=== PATIENT | female | born 1975 | race Caucasian/White ===

== ENCOUNTER → 2019-01-18 | Outpatient (CLI) | payer BC ==
--- NOTE | 2019-01-18 11:46 | US ---
EXAMINATION TYPE: US abdomen complete DATE OF EXAM: 01/18/2019 COMPARISON: CT from 2015 CLINICAL HISTORY: N92.6 Irregular bleeding,N92.1 Metromenorrhagia. heavy cycles for 3 months, pelvic pain, abdominal pain, cholecystectomy, large body habitus EXAM MEASUREMENTS: Liver Length: 16.3 cm Gallbladder Wall: Surgically absent CBD: not seen Spleen: 12.0 cm Right Kidney: 10.6 x 3.9 x 5.3 cm Left Kidney: 10.2 x 4.5 x 5.2 cm Pancreas: not seen, bowel gas Liver: intercostal imaging of heterogeneous liver, due to bowel gas Gallbladder: Surgically absent Evidence for sonographic Mccabe's sign: no CBD: not seen due to reasons stated above Spleen: wnl Right Kidney: wnl Left Kidney: wnl Upper IVC: wnl Abd Aorta: limited views due to bowel gas The visualized liver is heterogeneous. The intrahepatic portion of the IVC and visualized abdominal aorta are within normal limits. Gallbladder is now surgically absent. Common bile duct is unremarkab le. Suboptimal evaluation of pancreas on images saved secondary to overlying bowel gas. The spleen i s unremarkable. Kidneys are symmetric and free of hydronephrosis. No renal lesions are seen on imag es saved. IMPRESSION: No acute finding. No abdominal ascites. Probable mild diffuse fatty infiltration of liver .
--- NOTE | 2019-01-18 11:47 | US ---
EXAMINATION TYPE: US pelvic complete DATE OF EXAM: 01/18/2019 COMPARISON: Prior ultrasound April 29, 2014 CLINICAL HISTORY: pain. pelvic pain along with irregular cycles for 3 months TECHNIQUE: TA. Transabdominal sonographic images of the pelvis were acquired. Date of LMP: 12/05/2018 EXAM MEASUREMENTS: Uterus: 9.7 x 7.3 x 5.2 cm Endometrial Stripe: 1.4 cm Right Ovary: 1.8 x 1.8 x 2.0 cm Left Ovary: 3.1 x 4.2 x 2.3 cm patient cannot fill bladder and refused TV due to pain 1. Uterus: Anteverted wnl 2. Endometrium: borderline thickened 3. Right Ovary: 2.0cm simple appearing cyst 4. Left Ovary: 3.1cm simple appearing cyst 5. Bilateral Adnexa: wnl 6. Posterior cul-de-sac: wnl Heterogeneous anteverted uterus with endometrial stripe up to 14 mm which is within normal limits for late secretory phase of menstrual cycle. No free fluid in pelvic cul-de-sac. Both ovaries are identi fied with simple appearing cysts present bilaterally up to 3.0 cm. IMPRESSION: Transabdominal pelvic ultrasound shows an endometrial stripe upper limits of normal. No d efinitive focal fibroids.
== END | disposition home or self-care (01) ==
LOC: RADUSWWP 09:17
PROVIDERS: ATTEND Family Medicine
DX: N92.6 Irregular menstruation, unspecified (principal); N92.1 Excessive and frequent menstruation with irregular cycle
CPT/HCPCS: 76700; 76856

== ENCOUNTER → 2019-04-10 | Outpatient (CLI) | payer BC ==
[2019-04-10 17:34] LABS: Basophils # (A) 0.1 k/uL (0-0.2); Basophils % (A) 1 %; Eosinophils # (A) 0.3 k/uL (0-0.7); Eosinophils % (A) 3 %; HCT 38.4 % (34.0-46.0); HGB 13.2 gm/dL (11.4-16.0); Lymphocytes # (A) 2.6 k/uL (1.0-4.8); Lymphocytes % (A) 24 %; MCH 31.6 pg (25.0-35.0); MCHC 34.4 g/dL (31.0-37.0); MCV 91.9 fL (80.0-100.0); Monocytes # (A) 0.5 k/uL (0-1.0); Monocytes % (A) 5 %; Neutrophils # (A) 7.1 k/uL (1.3-7.7); Neutrophils % (A) 66 %; Platelet Count 354 k/uL (150-450); RBC 4.18 m/uL (3.80-5.40); RDW 12.7 % (11.5-15.5); WBC 10.9 k/uL (3.8-10.6)
== END ==
LOC: LABPAT 17:02
PROVIDERS: ATTEND Obstetrics & Gynecology
DX: Z01.812 Encounter for preprocedural laboratory examination (principal); N93.8 Other specified abnormal uterine and vaginal bleeding; N92.1 Excessive and frequent menstruation with irregular cycle
CPT/HCPCS: 85025

== ENCOUNTER 2019-04-16 07:25 | Day surgery (SDC) | payer BC ==
[2019-04-15 08:26] VITALS: BMI 41.5
[~2019-04-16 07:25] MED LIST: DEXAMETHASONE SOD PHOSPHATE 10 MG/ML 1 ML VIAL IV ONE; HYDROmorphone 0.5 MG/0.5 ML SYRINGE IVP PRN; LACTATED RINGERS 1,000 ML IV SCH; LIDOCAINE 1% 20 ML VIAL (10MG/ML) FOR IV START INTRADERMA PRN; MIDAZOLAM 2 MG/2 ML VIAL IV PRN; ONDANSETRON 4 MG/2 ML VIAL IVP ONE; SCOPOLAMINE 1.5MG/72HR PATCH TRANSDERM ONE; ceFAZolin 3 GM in SODIUM CHLORIDE 0.9% 100 ML IVPB ONE
[2019-04-16 07:48] VITALS: RESP 16
[2019-04-16] MEDS ORDERED: KETOROLAC 30 MG/ML 1 ML VIAL ONE (08:38)
[2019-04-16] MEDS ORDERED: SUCCINYLCHOLINE CHLORIDE 100 MG/5 ML SYR IV ONE (08:38)
[2019-04-16] MEDS ORDERED: fentaNYL (PF) 50 MCG/ML 2 ML AMP ONE (08:38)
[2019-04-16] MEDS ORDERED: LIDOCAINE 1% INJ 10MG/ML (20 ML MDV) ONE (08:38)
[2019-04-16] MEDS ORDERED: PROPOFOL 10 MG/ML 20 ML VIAL IV ONE (08:38)
[2019-04-16] MEDS ORDERED: MIDAZOLAM 2 MG/2 ML VIAL ONE (08:38)
[2019-04-16] MEDS ORDERED: Acetaminophen-Codeine 300-30mg TAB PO PRN ×2 (08:42)
[2019-04-16] MEDS ORDERED: METOCLOPRAMIDE 5 MG/ML 2 ML VIAL IVP PRN (08:42)
[2019-04-16] MEDS ORDERED: IBUPROFEN 600 MG TAB PO PRN (08:42)
[2019-04-16] MEDS ORDERED: diphenhydrAMINE 50 MG/ML 1 ML VIAL IVP PRN (08:42)
[2019-04-16] MEDS ORDERED: SIMETHICONE 80 MG CHEWABLE PO PRN (08:42)
[2019-04-16] MEDS ORDERED: KETOROLAC 30 MG/ML 1 ML VIAL IVP PRN (08:42)
[2019-04-16] MEDS ORDERED: ONDANSETRON 4 MG/2 ML VIAL IVP PRN (08:42)
--- NOTE | 2019-04-16 09:18 | P.OP ---
Date of Procedure: 04/16/19 Preoperative Diagnosis: #1. Dysfunctional uterine bleeding #2. Menometrorrhagia Postoperative Diagnosis: Same Procedure(s) Performed: #1. Diagnostic hysteroscopy #2. Endometrial curettage #3. NovaSure endometrial ablation Anesthesia: DYLAN Surgeon: Keaton Love Estimated Blood Loss (ml): 5 IV fluids (ml): 500 Urine output (ml): 10 Pathology: other (Endometrial curettings) Condition: stable Disposition: PACU Operative Findings: Preoperative pelvic examination demonstrated a roughly 5 week anteverted mobile normal shaped uterus with normal adnexa bilaterally. Intraoperatively, the uterus sounded to approximately 8.5 cm with a cervical length of 3 cm. Using the hysteroscope, there was a moderate amount of shaggy tissue along the posterior fundal portion of the uterus with one area in the left cornu which appeared to be somewhat polypoid in nature. The uterus also appeared to be slightly heart-shaped. As result of the shaggy tissue, curettage was performed with minimal tissue return onto a Telfa in the vagina. The settings for the NovaSure tool where a length of 5.5 cm, a width of 4.7 cm for a total power 142 W. After a run time of 55 seconds, the base unit read "procedure complete." The postprocedural result with the hysteroscope appeared to be excellent. The patient is a poor candidate for vaginal hysterectomy should it become necessary. Description of Procedure: The patient was prepped and draped in usual fashion after general endotracheal anesthesia was administered by the anesthesiologist. A weighted speculum was placed and the anterior lip of the cervix was grasped with a single-tooth tenaculum. The bladder was drained of approximately 10 mL of clear rebecca urine. The uterus was sounded to approximately 8.5 cm with a cervical length of approximately 3 cm. Serial dilation was carried out to admit the diagnostic hysteroscope which was placed and the in vitro cavity and distended with saline. The findings are as noted above with a moderate amount of shaggy tissue along the posterior wall of the fundus and what appeared to be a very small sessile polyp the left posterior cornual region. The bilateral cornu were seen. After adequate hysteroscopy was carried out, scope was set aside and the Telfa placed in the vagina. A small sharp curette was utilized to thoroughly and circumferentially curet the in vitro cavity with the tissue removed onto a Telfa placed in the vagina. The sharp curet was set aside and the NovaSure tool placed into the endometrial cavity, opened, and seated well. The settings were as noted above with a length of 5.5 cm, a width of 4.7 cm for a total power 140 W. The cavity check was attempted and passed without difficulty. The tool was enabled and the run was started. After total run time of 55 seconds, the base unit read "procedure complete." The tool was closed, removed, and discarded and the diagnostic scope placed with the findings noted to be excellent as noted above. All instrumentation was then removed. One of the tenaculum sites was noted to be bleeding and was made hemostatic with pressure. Estimated blood loss was less than 5 mL. There are no complications. All sponge, instrument, and needle counts were correct. The patient tolerated the procedure well and proceeded to the recovery room in stable condition. She is a poor candidate for vaginal hysterectomy as there is minimal descensus.
[2019-04-16 09:27] VITALS: TEMP 96.9
[2019-04-16] MEDS ORDERED: ONDANSETRON ODT 4 MG TAB PO ONE (09:32)
[2019-04-16] MEDS: LACTATED RINGERS 1,000 ML IV SCH ×2 (10:05→10:15)
[2019-04-16 11:22] VITALS: BP 116/81; PULSE 71
== END 2019-04-16 12:10 | disposition home or self-care (01) ==
LOC: OR 07:25
PROVIDERS: ATTEND Obstetrics & Gynecology
DX: N92.1 Excessive and frequent menstruation with irregular cycle (principal); N84.0 Polyp of corpus uteri; Z90.49 Acquired absence of other specified parts of digestive tract; Z98.51 Tubal ligation status; Z98.890 Other specified postprocedural states; E66.9 Obesity, unspecified; Z79.899 Other long term (current) drug therapy; Z68.41 Body mass index [BMI] 40.0-44.9, adult
CPT/HCPCS: 81025; 88305; 58563; J2250; J1100; J2405; J2001; J3010; J1885; J0330; J2704; J1170

== ENCOUNTER → 2020-08-05 | Outpatient (CLI) | payer BC ==
--- NOTE | 2020-08-05 09:26 | US ---
EXAMINATION TYPE: US abdomen limited DATE OF EXAM: 08/05/2020 COMPARISON: NONE CLINICAL HISTORY: R74.8 Abnormal levels Alk Phosphatase, R94.5 Abnormal LFT. patient was taking 8 Monika ve a day for rotator tear pain, no symptoms within abd EXAM MEASUREMENTS: Liver Length: 14.9 cm Gallbladder Wall: Surgically absent CBD: 0.4 cm Right Kidney: 10.6 x 4.8 x 5.3 cm large habitus and overlying bowel gas limits exam Pancreas: not seen Liver: intercostal imaging due to gas, difficult to penetrate with no focal abnormality noted Gallbladder: Surgically absent Evidence for sonographic Mccabe's sign: no CBD: wnl Right Kidney: wnl IMPRESSION: 1. Suspect hepatic steatosis. . The bowel.
== END | disposition home or self-care (01) ==
LOC: RADUSWWP 08:53
PROVIDERS: ATTEND Family Medicine
DX: R74.8 Abnormal levels of other serum enzymes (principal); R94.5 Abnormal results of liver function studies
CPT/HCPCS: 76705

== ENCOUNTER → 2020-08-13 | Outpatient (CLI) | payer BC ==
--- NOTE | 2020-08-13 15:46 | MR ---
EXAMINATION TYPE: MR shoulder LT wo con DATE OF EXAM: 08/13/2020 COMPARISON: X-ray film 07/21/2020 HISTORY: Left shoulder pain for 7 months TECHNIQUE: Multiplanar, multisequence imaging of the left shoulder is performed without contrast. FINDINGS: Rotator Cuff: Intact, no vera rotator cuff tear, there is some increased intrinsic signal within the rotator cuff, some local fluid signal is present. Minimal irregularity inferior aspect of the acromi on is noted consistent with spur Acromioclavicular Joint: There is arthropathy change present, some mass effect is present on the musc ulotendinous junction of supraspinatus Glenohumeral Joint: Intact Labrum: Superior labrum shows some abnormal increased signal intrinsically, there is a somewhat trunc ated appearance, coronal image #18 and 19 mother may be some generative fraying Biceps Tendon: The long head of biceps is in normal location within bicipital groove. Bone marrow signal: No focal abnormal marrow signal is appreciated. Other: No additional significant abnormality is appreciated. IMPRESSION: Findings suggest tendinosis of the rotator cuff, no vera rotator cuff tear, correlate for impingemen t. There may be some degenerative signal, fraying of the superior labrum
== END | disposition home or self-care (01) ==
LOC: RADMRIMAIN 11:02
PROVIDERS: ATTEND Orthopaedic Surgery
DX: M25.512 Pain in left shoulder (principal)

== ENCOUNTER → 2020-09-09 | Outpatient (CLI) | payer BC ==
[2020-09-09 11:41] LABS: Basophils # (A) 0.1 k/uL (0-0.2); Basophils % (A) 1 %; Eosinophils # (A) 0.4 k/uL (0-0.7); Eosinophils % (A) 5 %; HCT 41.6 % (34.0-46.0); HGB 14.3 gm/dL (11.4-16.0); Lymphocytes # (A) 2.5 k/uL (1.0-4.8); Lymphocytes % (A) 27 %; MCHC 34.3 g/dL (31.0-37.0); MCV 93.4 fL (80.0-100.0); Mean Platelet Volume 10.4; Monocytes # (A) 0.4 k/uL (0-1.0); Monocytes % (A) 4 %; Neutrophils # (A) 5.6 k/uL (1.3-7.7); Neutrophils % (A) 61 %; Platelet Count 265 k/uL (150-450); RBC 4.46 m/uL (3.80-5.40); RDW 12.8 % (11.5-15.5); WBC 9.3 k/uL (3.8-10.6)
[2020-09-09 11:54] LABS: Potassium 4.4 mmol/L (3.5-5.1)
== END | disposition home or self-care (01) ==
LOC: LABWHC1 11:01
PROVIDERS: ATTEND Orthopaedic Surgery
DX: Z01.812 Encounter for preprocedural laboratory examination (principal); M75.42 Impingement syndrome of left shoulder
CPT/HCPCS: 36415; 80051; 85025

== ENCOUNTER → 2020-09-24 | Day surgery (SDC) | payer BC | END | disposition home or self-care (01) | CPT/HCPCS: 29826; 29827; 64415; 81025; 76942; C1713; J2250; J1100; J2765; J0690; J2405; J2001; J3010; J2795; J1885; J0330; J2704 ==

== ENCOUNTER 2021-01-11 11:17 | Day surgery (SDC) | payer BC ==
[2021-01-07 15:18] VITALS: BMI 38.3
--- NOTE | 2021-01-10 12:02 | HP ---
HISTORY AND PHYSICAL DATE OF SURGERY: 01/11/2021 Danyell Chahal is a 45-year-old patient seen with left shoulder adhesive capsulitis. We discussed options for treatment. She elected to proceed with manipulation under anesthesia of the left shoulder with steroid injection. Consent was obtained. PAST MEDICAL HISTORY: Noncontributory. PAST SURGICAL HISTORY: Left shoulder arthroscopy. DAILY MEDICATIONS: Ibuprofen. ALLERGIES: NONE. SOCIAL HISTORY: She denies tobacco use. PHYSICAL EVALUATION OF THE LEFT SHOULDER: She has well-healed arthroscopic portal sites. Flexion is 100, abduction is 90, external rotation is 45 with some weakness. Her distal neurovascular exam is intact. RADIOGRAPHS: Left shoulder radiographs revealed stable conversion to a flat anterior acromion. IMPRESSION: 1. Left shoulder adhesive capsulitis. 2. History of left shoulder arthroscopic rotator cuff repair. PLAN: Manipulation under anesthesia of left shoulder with steroid injection. MMMEGANL / MANIN: [id number] /
[~2021-01-11 11:17] MED LIST changes: -DEXAMETHASONE SOD PHOSPHATE 10 MG/ML 1 ML VIAL IV ONE; +DEXAMETHASONE SOD PHOSPHATE 4 MG/ML 1 ML VIAL IV ONE; -HYDROmorphone 0.5 MG/0.5 ML SYRINGE IVP PRN; +LIDOCAINE 1% (10MG/ML) FOR IV START INTRADERMA PRN; -LIDOCAINE 1% 20 ML VIAL (10MG/ML) FOR IV START INTRADERMA PRN; -SCOPOLAMINE 1.5MG/72HR PATCH TRANSDERM ONE; -ceFAZolin 3 GM in SODIUM CHLORIDE 0.9% 100 ML IVPB ONE
[2021-01-11 11:45] VITALS: TEMP 97.4
[2021-01-11] MEDS ORDERED: fentaNYL (PF) 50 MCG/ML 2 ML AMP ONE (12:29)
[2021-01-11] MEDS ORDERED: BUPIVACAINE (PF) 0.25% 30 ML VIAL ONE (12:29)
[2021-01-11] MEDS ORDERED: methylPREDNISolone ACETATE 40 MG/ML 1 ML VIAL ONE (12:29)
[2021-01-11] MEDS ORDERED: MIDAZOLAM 2 MG/2 ML VIAL ONE (12:29)
[2021-01-11] MEDS ORDERED: PROPOFOL 10 MG/ML 20 ML VIAL IV ONE (12:29)
[2021-01-11] MEDS ORDERED: KETOROLAC 15 MG/ML 1 ML VIAL ONE (12:36)
[2021-01-11] MEDS ORDERED: KETOROLAC 15 MG/ML 1 ML VIAL IVP ONE ×2 (12:38→12:42)
[2021-01-11] MEDS: HYDROmorphone 0.5 MG/0.5 ML SYRINGE IVP PRN ×2 (12:42→12:56)
--- NOTE | 2021-01-11 12:44 | P.OP ---
Date of Procedure: 01/11/21 Preoperative Diagnosis: Left shoulder adhesive capsulitis Postoperative Diagnosis: Left shoulder adhesive capsulitis Procedure(s) Performed: Manipulation under anesthesia left shoulder with steroid injection Anesthesia: MAC Surgeon: Leo Das Estimated Blood Loss (ml): 0 Pathology: none sent Condition: stable Disposition: PACU Indications for Procedure: 45-year-old patient seen with persistent left shoulder adhesive capsulitis. After having treatment options discussed, she elected to proceed with manipulation under anesthesia with steroid injection. Operative Findings: See description of procedure Description of Procedure: The patient was taken to a monitored anesthesia area. She underwent IV sedation by the department of anesthesia. Once sufficient anesthesia was noted I performed a manipulation of the left shoulder achieving full range of motion with audible tearing of the adhesions. The anterior aspect of the shoulder was prepped and draped in the normal sterile orthopedic fashion. I injected solu tion 1 mL Depo-Medrol and 3 mL quarter percent plain Marcaine intra-articular via sterile technique. A sterile Band-Aid was applied. The patient was awakened having tolerated the procedure well.
[2021-01-11 13:22] VITALS: RESP 16
[2021-01-11 14:04] VITALS: BP 119/63; PULSE 63
== END 2021-01-11 14:08 | disposition home or self-care (01) ==
LOC: OR 11:17
PROVIDERS: ATTEND Orthopaedic Surgery
DX: M75.02 Adhesive capsulitis of left shoulder (principal); E66.01 Morbid (severe) obesity due to excess calories
CPT/HCPCS: 23700; 81025; J2250; J1030; J1100; J2405; J3010; J1885; J2704; J1170